=== PATIENT | female | born 1970 | race Caucasian/White ===

== ENCOUNTER 2016-07-20 15:23 | Emergency (ER) | payer OTHER ==
[~2016-07-20] VITALS: Ht 157.5 cm; Wt 77.1 kg
[~2016-07-20 15:23] MED LIST: DIFLUCAN150 MG PO; DOXYCYLINE50 MG PO; FLAGYL500 MG PO; NAPROSYN500 MG PO; OXYBUTYNIN5 M1; ROBAXIN500 M1 PO; ULTRAM50 MG PO; [UNRECOGNIZED DRUG - OTHER] VG
[2016-07-20 15:34] VITALS: BP 136/78
--- NOTE | 2016-07-20 15:38 | NUR ---
Patient ambulated to bed 7. RN evaluating patient at bedside.
--- NOTE | 2016-07-20 15:40 | NUR ---
PATIENT PRESENTS TO ED WITH NECK STIFFNESS AND CHEST PRESSURE X1 DAY. NO TRAUMA; DENIES N/V/D; SKIN IS PINK/WARM/DRY; AAOX4 WITH EVEN AND STEADY GAIT; LUNGS CLEAR BL; HR EVEN AND REGULAR; PT DENIES ANY FEVER, CP, SOB, OR COUGH AT THIS TIME; PATIENT STATES PAIN OF 5/10 AT THIS TIME; VSS; PATIENT POSITIONED FOR COMFORT; HOB ELEVATED; BEDRAILS UP X2; BED DOWN. ER MD MADE AWARE OF PT STATUS.
[2016-07-20] MEDS ORDERED: KETOROLAC 60 MG/2 ML VIAL IM ONE (16:00)
--- NOTE | 2016-07-20 16:35 | NUR ---
AMBERO PT TAKEN TO XRAY VIA WHEEL CHAIR BY TAX COMMISSIONER
--- NOTE | 2016-07-20 16:35 | NUR ---
Ashely kaye in [facility] - 07/20/16 at 1638 by DIANA LINE MANAGER AT BEDSIDE
--- NOTE | 2016-07-20 16:51 | NUR ---
PT BACK FROM XRAY VIA WHEEL CHAIR PLACED BACK ON MONITOR
[2016-07-20 17:25] VITALS: BP 120/70
== END 2016-07-20 17:25 | disposition home or self-care (01) ==
LOC: MED 15:23
DX: M43.6 Torticollis (principal); R03.0 Elevated blood-pressure reading, without diagnosis of hypertension
CPT/HCPCS: 36415; 71010; 72040; 80053; 85025; 93005; 96372; 99285; J1885

== ENCOUNTER 2016-12-08 00:01 | Emergency (ER) | payer OTHER ==
[~2016-12-08] VITALS: Ht 157.5 cm; Wt 81.6 kg
[2016-12-08 00:05] VITALS: BP 135/83
--- NOTE | 2016-12-08 00:12 | NUR ---
AMBULATED TO ER BED 7
--- NOTE | 2016-12-08 00:42 | NUR ---
Patient being evaluated by physician at bedside.
[2016-12-08] MEDS ORDERED: SUMAtriptan 6 MG/0.5 ML VIAL SUBQ ONE (00:45)
[2016-12-08] MEDS ORDERED: KETOROLAC 60 MG/2 ML VIAL IM ONE (00:45)
[2016-12-08 02:00] VITALS: BP 120/62
--- NOTE | 2016-12-08 02:00 | NUR ---
Patient discharged with v/s stable. Written and verbal after care instructions given and explained. Patient alert, oriented and verbalized understanding of instructions. Ambulatory with steady gait. All questions addressed prior to discharge. ID band removed. Patient advised to follow up with PMD. Rx of IMTREX given. Patient educated on indication of medication including possible reaction and side effects. Opportunity to ask questions provided and answered.
--- NOTE | 2016-12-08 02:00 | NUR ---
Note jeffone in EDM - 12/08/16 at 0202 by FAYE Patient discharged with v/s stable. Written and verbal after care instructions given and explained. Patient alert, oriented and verbalized understanding of instructions. Ambulatory with by parent. All questions addressed prior to discharge. ID band removed. Patient advised to follow up with PMD. Rx of OMEPRAZOLE given. Patient educated on indication of medication including possible reaction and side effects. Opportunity to ask questions provided and answered.
== END 2016-12-08 02:00 | disposition home or self-care (01) ==
LOC: MED 00:01
DX: G43.909 Migraine, unspecified, not intractable, without status migrainosus (principal); R03.0 Elevated blood-pressure reading, without diagnosis of hypertension
CPT/HCPCS: 96372; 99284; J1885; J3030

== ENCOUNTER 2017-07-20 02:49 | Emergency (ER) | payer OTHER ==
[~2017-07-20] VITALS: Ht 157.5 cm; Wt 80.7 kg
[2017-07-20 02:52] VITALS: BP 147/95
--- NOTE | 2017-07-20 03:00 | NUR ---
PATIENT AMBULATED TO ER CHAIR B.
--- NOTE | 2017-07-20 03:02 | NUR ---
PATIENT IS A 46 Y/O FEMALE WHO PRESENTS TO THE ED C/O ALLERGIC REACTION. PT STATES, "I WAS DRINKING BEERS AND HAD SOME PEANUTS AND I FEEL ITCHY." PT DENIES PAIN AT THIS TIME, REPORTS BODY ITCHES. PT DENIES CP, SOB, N/V/D. PT AAOX4, RR EVEN/UNLABORED. PT REPOSITIONED FOR COMFORT, PT SITTING IN CHAIR. ER MD DR. GORMAN NOTIFIED. WILL CONTINUE TO MONITOR.
[2017-07-20] MEDS ORDERED: predniSONE 20 MG TAB PO ONE (03:20)
[2017-07-20 03:50] VITALS: BP 139/89
--- NOTE | 2017-07-20 03:50 | NUR ---
Patient discharged with v/s stable. Written and verbal after care instructions given and explained. Patient alert, oriented and verbalized understanding of instructions. Ambulatory with steady gait. All questions addressed prior to discharge. ID band removed. Patient advised to follow up with PMD. Rx of MEDROL DOSEPAK 4MG given. Patient educated on indication of medication including possible reaction and side effects. Opportunity to ask questions provided and answered.
== END 2017-07-20 03:50 | disposition home or self-care (01) ==
LOC: MED 02:49
DX: L50.0 Allergic urticaria (principal); Z90.49 Acquired absence of other specified parts of digestive tract
CPT/HCPCS: 99283; J7512

== ENCOUNTER 2017-07-20 21:21 | Emergency (ER) | payer OTHER ==
[~2017-07-20] VITALS: Ht 157.5 cm; Wt 80.7 kg
[2017-07-20 21:27] VITALS: BP 167/97
--- NOTE | 2017-07-21 00:09 | NUR ---
TO ER BED 1
--- NOTE | 2017-07-21 00:09 | NUR ---
Pt presents to ED with dyspnea and fullbody rash. Pt states she was seen at [facility] ED on 07/20/17 and was perscribed prednisolone po. At time of assessment Pt denied SOB or Dyspnea. Multiple hive-patches observed on bilateral upper/lower libs and anterior/posterior trunk. VSS. Pt positioned in bed for comfort with HOB elevated. ER MD aware. Continue to monitor.
[2017-07-21] MEDS ORDERED: diphenhydrAMINE 50 MG CAP PO ONE (01:15)
[2017-07-21] MEDS ORDERED: DEXAMETHASONE 10 MG/ML VIAL IM ONE (01:15)
[2017-07-21] MEDS ORDERED: FAMOTIDINE 20 MG TAB PO ONE (01:15)
[2017-07-21] MEDS ORDERED: hydrOXYzine 50 MG/ML VIAL IM ONE (02:10)
--- NOTE | 2017-07-21 02:10 | NUR ---
PT CONTINUES TO C/O ITCHYNESS; PT DENIES ANY DIFFICULTY BREATHING; PT BREATHING IS UNLABORED, CLEAR AND EVEN. PT STATES THROAT FEELS ITCHY, BUT NO DIFFICULTY WHEN GIVEN CUP OF WATER. PT STILL ABLE TO RESPOND IS COMPLETE SENTENCES. ER MD DR WALSH MADE AWARE, WILL ORDER MEDICATION
--- NOTE | 2017-07-21 02:11 | NUR ---
VISTARIL 50MG INJ NOT AVAILABLE IN ER, HOUSE SUP INFORMED
--- NOTE | 2017-07-21 02:31 | NUR ---
VISTARIL NOT AVAILABLE, PER RAMON MCNAIR DR DEHKORDI MADE AWARE.
[2017-07-21 02:56] VITALS: BP 137/75
--- NOTE | 2017-07-21 02:56 | NUR ---
dPatient discharged with v/s stable. Written and verbal after care instructions given and explained. Patient alert, oriented and verbalized understanding of instructions. Ambulatory with steady gait. All questions addressed prior to discharge. ID band removed. Patient advised to follow up with PMD. Rx of bedadryl allergy given. Patient educated on indication of medication including possible reaction and side effects. Opportunity to ask questions provided and answered.
== END 2017-07-21 02:56 | disposition home or self-care (01) ==
LOC: MED 21:21
DX: L50.9 Urticaria, unspecified (principal)
CPT/HCPCS: 96372; 99283; J1100; J3410; Q0163

== ENCOUNTER 2018-03-19 07:18 | Emergency (ER) | payer MEDICAID, OTHER ==
[~2018-03-19] VITALS: Ht 157.5 cm; Wt 85.5 kg
[2018-03-19 07:24] VITALS: BP 125/71
[2018-03-19] MEDS ORDERED: NACL 0.9% 1,000 ML IV ONE (07:50)
[2018-03-19 08:33] LABS: BASOPHILS % (AUTO) 0.5 % (0.0-2.0); EOSINOPHILS # (AUTO) 0.1 K/uL (0-0.4); EOSINOPHILS % (AUTO) 1.6 % (0.0-4.0); HEMATOCRIT 42.4 % (36-48); HEMOGLOBIN 14.3 g/dL (12.0-16.0); LYMPHOCYTES % (AUTO) 35.1 % (20.5-51.1); MEAN CORPUSCULAR HEMOGLOBIN 31 pg (27-31); MEAN CORPUSCULAR HGB CONC 34 g/dL (33-37); MEAN CORPUSCULAR VOLUME 91.7 fL (80-94); MONOCYTES # (AUTO) 0.2 K/uL (0.8-1.0); MONOCYTES % (AUTO) 4.3 % (1.7-9.3); NEUTROPHILS # (AUTO) 3.3 K/uL (1.8-7.7); NEUTROPHILS % (AUTO) 58.5 % (42.2-75.2); PLATELET COUNT (AUTO) 166 K/uL (140-450); RED BLOOD CELL COUNT(AUTO) 4.62 MIL/uL (4.20-5.40); RED CELL DISTRIBUTION WIDTH 13.1 % (11.6-13.7); WHITE BLOOD COUNT (AUTO) 5.6 K/uL (4.8-10.8)
[2018-03-19 08:41] LABS: ANION GAP 9.1 (8-16); CARBON DIOXIDE 28.1 mmol/L (21-32); CREATININE 0.7 mg/dL (0.6-1.3); POTASSIUM 4.2 mmol/L (3.5-5.1)
[2018-03-19 08:47] LABS: TOTAL BILIRUBIN 0.4 mg/dL (0.0-1.0)
[2018-03-19 08:56] LABS: APPEARANCE,URINE CLEAR (CLEAR); BILIRUBIN,URINE NEGATIVE (NEGATIVE); BLOOD, URINE 1+ (NEGATIVE); COLOR,URINE YELLOW (YELLOW); LEUKOCYTE ESTERASE ,URINE NEGATIVE (NEGATIVE); NITRITE, URINE NEGATIVE (NEGATIVE); UGLUCOSE NEGATIVE (NEGATIVE)
[2018-03-19 08:57] LABS: RBC,URINE 3-10 (FEW) /HPF (0-5); WBC,URINE 0-5 (RARE) /HPF (0-5)
[2018-03-19 10:23] VITALS: BP 125/71
== END 2018-03-19 10:24 | disposition home or self-care (01) ==
LOC: MED 07:18
DX: K52.9 Noninfective gastroenteritis and colitis, unspecified (principal)
CPT/HCPCS: 36415; 80053; 81001; 81025; 85025; 96360; 96361; 99285; J7030

== ENCOUNTER 2019-03-04 01:40 | Emergency (ER) | payer SELFPAY ==
[~2019-03-04] VITALS: Ht 154.9 cm; Wt 83.9 kg
[2019-03-04 01:42] VITALS: BP 136/79
[2019-03-04] MEDS ORDERED: ONDANSETRON 4 MG/2 ML VIAL IVP ONE (02:15)
[2019-03-04] MEDS ORDERED: MORPHINE SULFATE 4 MG/ML SYR IVP ONE (02:15)
[2019-03-04 02:38] LABS: APPEARANCE,URINE CLEAR (CLEAR); BILIRUBIN,URINE NEGATIVE (NEGATIVE); BLOOD, URINE TRACE-L (NEGATIVE); COLOR,URINE YELLOW (YELLOW); LEUKOCYTE ESTERASE ,URINE NEGATIVE (NEGATIVE); NITRITE, URINE NEGATIVE (NEGATIVE); PH,URINE 5.5 (5.0-9.0); UGLUCOSE NEGATIVE (NEGATIVE)
[2019-03-04 02:40] LABS: BASOPHILS # (AUTO) 0.1 K/uL (0.00-0.22); BASOPHILS % (AUTO) 1.2 % (0.0-2.0); EOSINOPHILS # (AUTO) 0.2 K/uL (0-0.4); EOSINOPHILS % (AUTO) 2.8 % (0.0-4.0); HEMATOCRIT 39.4 % (36-48); HEMOGLOBIN 13.2 g/dL (12.0-16.0); LYMPHOCYTES # (AUTO) 2.2 K/uL (2.5-16.5); LYMPHOCYTES % (AUTO) 28.9 % (20.5-51.1); MEAN CORPUSCULAR HEMOGLOBIN 32 pg (27-31); MEAN CORPUSCULAR HGB CONC 34 g/dL (33-37); MEAN CORPUSCULAR VOLUME 94.1 fL (80-94); MONOCYTES # (AUTO) 0.3 K/uL (0.8-1.0); MONOCYTES % (AUTO) 4.3 % (1.7-9.3); NEUTROPHILS # (AUTO) 4.8 K/uL (1.8-7.7); NEUTROPHILS % (AUTO) 62.8 % (42.2-75.2); PLATELET COUNT (AUTO) 152 K/uL (140-450); RED BLOOD CELL COUNT(AUTO) 4.19 MIL/uL (4.20-5.40); RED CELL DISTRIBUTION WIDTH 13.2 % (11.6-13.7); WHITE BLOOD COUNT (AUTO) 7.6 K/uL (4.8-10.8)
[2019-03-04 02:54] LABS: RBC,URINE 0-5 /HPF (0-5); WBC,URINE 0-5 /HPF (0-5)
[2019-03-04 03:00] LABS: ANION GAP 9.9 (8-16); CARBON DIOXIDE 28.2 mmol/L (21-32); CREATININE 0.8 mg/dL (0.6-1.3); POTASSIUM 4.1 mmol/L (3.5-5.1)
[2019-03-04 03:05] LABS: ALBUMIN 2.9 g/dL (3.4-5.0); TOTAL BILIRUBIN 0.3 mg/dL (0.0-1.0)
[2019-03-04 04:05] VITALS: BP 109/55
== END 2019-03-04 04:05 | disposition home or self-care (01) ==
LOC: MED 01:40
DX: K80.50 Calculus of bile duct without cholangitis or cholecystitis without obstruction (principal)
CPT/HCPCS: 36415; 76705; 80053; 81001; 81025; 83690; 85025; 96374; 96375; 99284; J2270; J2405; Q0092

== ENCOUNTER 2019-03-08 01:50 | Inpatient (IN) | payer SELFPAY ==
[~2019-03-08] VITALS: Ht 157.5 cm; Wt 81.6 kg
[2019-03-08] MEDS ORDERED: NACL 0.9% 500 ML IV ONE (01:58)
[2019-03-08] MEDS ORDERED: ONDANSETRON 4 MG/2 ML VIAL IVP ONE (02:00)
[2019-03-08] MEDS ORDERED: KETOROLAC 30 MG/ML VIAL IVP ONE (02:00)
[2019-03-08 02:02] VITALS: BP 126/66
--- NOTE | 2019-03-08 02:08 | NUR ---
PT AMBULATED TO BED 9.
[2019-03-08 02:24] LABS: BASOPHILS % (AUTO) 0.4 % (0.0-2.0); EOSINOPHILS # (AUTO) 0.1 K/uL (0-0.4); EOSINOPHILS % (AUTO) 1.3 % (0.0-4.0); HEMATOCRIT 42.2 % (36-48); LYMPHOCYTES % (AUTO) 33.5 % (20.5-51.1); MEAN CORPUSCULAR HEMOGLOBIN 31 pg (27-31); MEAN CORPUSCULAR HGB CONC 33 g/dL (33-37); MEAN CORPUSCULAR VOLUME 94.3 fL (80-94); MONOCYTES # (AUTO) 0.4 K/uL (0.8-1.0); MONOCYTES % (AUTO) 4.9 % (1.7-9.3); NEUTROPHILS # (AUTO) 5.3 K/uL (1.8-7.7); NEUTROPHILS % (AUTO) 59.9 % (42.2-75.2); PLATELET COUNT (AUTO) 150 K/uL (140-450); RED BLOOD CELL COUNT(AUTO) 4.47 MIL/uL (4.20-5.40); RED CELL DISTRIBUTION WIDTH 13.3 % (11.6-13.7); WHITE BLOOD COUNT (AUTO) 8.9 K/uL (4.8-10.8)
[2019-03-08 02:39] LABS: ALBUMIN 3.1 g/dL (3.4-5.0); ANION GAP 12.5 (8-16); CARBON DIOXIDE 26.3 mmol/L (21-32); CREATININE 0.7 mg/dL (0.6-1.3); POTASSIUM 3.8 mmol/L (3.5-5.1); TOTAL BILIRUBIN 0.2 mg/dL (0.0-1.0)
--- NOTE | 2019-03-08 03:19 | NUR ---
48 Y/O FEMALE PRESENTS TO ED, C/O OF ABDOMINAL PAIN 02/25. PT STATES SHE WAS RECENTLY DIAGNOSED WITH GALLSTONES, RX NORCO FOR PAIN 2 DAYS AGO. STATES MEDICATION WAS INEFFECTIVE. ABD IS SOFT AND TENDER TO TOUCH. BS ACTIVE X4 QUADRANTS. C/O OF N/V. LAST EPISODE WAS 30 MINS SADDLE AND HARNESS MAKER. PT VSS. ERMD AWARE. WILL CONTINUE TO MONITOR.
--- NOTE | 2019-03-08 03:33 | NUR ---
Ultrasound at bedside.
[2019-03-08] MEDS ORDERED: DEXT 5% / NACL 0.45% 1,000 ML IV ONE (03:40)
--- NOTE | 2019-03-08 03:48 | NUR ---
Dr. An examining patient.
--- NOTE | 2019-03-08 04:00 | NUR ---
Dr. Davidson examining patient.
--- NOTE | 2019-03-08 04:07 | NUR ---
PT AMBULATED TO RESTROOM.
[2019-03-08] MEDS ORDERED: HYDROcodone/APAP 5/325 MG 1 TAB TAB PO PRN (04:10)
[2019-03-08] MEDS ORDERED: LORazepam 2 MG/ML VIAL IM/IVP PRN (04:10)
[2019-03-08] MEDS ORDERED: ONDANSETRON 4 MG/2 ML VIAL IM/IVP PRN (04:10)
[2019-03-08] MEDS ORDERED: MORPHINE SULFATE 2 MG/ML SYR IVP PRN (04:10)
[2019-03-08] MEDS ORDERED: ACETAMINOPHEN 325 MG TAB PO PRN (04:10)
[2019-03-08] MEDS ORDERED: ZOLPIDEM 5 MG TAB PO PRN (04:10)
[2019-03-08] MEDS ORDERED: DOCUSATE SODIUM 100 MG GELCAP PO PRN (04:10)
[2019-03-08 04:26] LABS: APPEARANCE,URINE SL CLOUDY (CLEAR); BILIRUBIN,URINE NEGATIVE (NEGATIVE); BLOOD, URINE 1+ (NEGATIVE); COLOR,URINE YELLOW (YELLOW); LEUKOCYTE ESTERASE ,URINE NEGATIVE (NEGATIVE); NITRITE, URINE NEGATIVE (NEGATIVE); UGLUCOSE NEGATIVE (NEGATIVE)
[2019-03-08 04:40] LABS: PROTHROMBIN TIME 9.1 secs (10.8-13.4)
--- NOTE | 2019-03-08 04:40 | NUR ---
PT ADMITTED TO [facility] RM 119A. TRANSFERRED PT VIA [place], STABLE CONDITION. REPORT GIVEN TO GINA ZIEGLER. PT CARE TRANSFERRED TO RECEIVING RN.
[2019-03-08 04:41] LABS: BARBITURATE, URINE NEG. ng/ml (NEG <=200); BENZODIAZEPINE, URINE NEG. ng/mL (NEG <=200); CANNABINOID, URINE NEG. ng/mL (NEG <=50); COCAINE, URINE NEG. ng/mL (NEG <=300); OPIATE, URINE NEG. ng/mL (NEG <=2000); PHENCYCLIDINE SCREEN,URINE NEG. ng/mL (NEG <=25)
[2019-03-08 04:43] LABS: CHOL/HDL RATIO 5.6 (1-4.5); MAGNESIUM 1.9 mg/dL (1.8-2.4); PHOSPHORUS 3.3 mg/dL (2.5-4.9); THYROID STIMULATING HORMONE 2.3 uIU/mL (0.34-3.74)
--- NOTE | 2019-03-08 04:45 | NUR ---
ADMITTED THIS 48 YEAR OLD FEMALE FROM ER PER MANOJ WITH CC OF ABDOMINAL PAIN, AMBULATED TO BED WITH STEADY GAIT, VITAL SIGNS STABLE, AAOX4, 4/10 TOLERABLE PAIN LEVEL AT THIS TIME, ORIENTED TO ROOM AND CALL LIGHT, PLAN OF CARE DISCUSSED, INSTRUCTED NPO EXCEPT MEDS FOR NOW, SAFETY MEASURES IN PLACE, CALL LIGHT WITHIN REACH, AT BEDSIDE.
[2019-03-08] MEDS: DEXT 5% /NACL 0.9% 1,000 ML IV SCH ×2 (05:08→16:39)
--- NOTE | 2019-03-08 05:10 | NUR ---
PT AMBULATED TO BR AND VOIDED FREELY, IVF OF D5NS AT 80ML/H STARTED.
[2019-03-08 05:12] LABS: RBC,URINE 0-5 /HPF (0-5); WBC,URINE 0-5 /HPF (0-5)
[2019-03-08] MEDS ORDERED: cefTRIAXone 1,000 MG VIAL ONE (05:14)
--- NOTE | 2019-03-08 06:30 | NUR ---
PT SLEEPING, EASILY AROUSABLE, TOLERABLE PAIN AT THIS TIME, ENCOURAGE TO CALL WHEN PAIN GET WORST, VERBALIZED UNDERSTANDING, NO REACTION NOTED FROM ROCEPHIN IVPB, MONITORED CLOSELY.
--- NOTE | 2019-03-08 07:17 | NUR ---
PT AWAKE, NO SIGNS OF DISTRESS, REPORT GIVEN TO TONEY LOVELACE FOR CONTINUITY OF CARE.
--- NOTE | 2019-03-08 07:18 | NUR ---
RECEIVED REPORT FROM GRADING CLERK NURSE. PATIENT LYING DOWN IN BED COMFORTABLY. NO DISTRESS NOTED. ALYCE ANY PAIN AT THIS TIME. AAOX4, CALM, COOPERATIVE, SKIN COLOR APPROPRIATE TO ETHNICITY, WARM TO TOUCH. SKIN INTACT. ABDOMEN SOFT, NON-DISTENDED. IV SITE INTACT, PATENT, AND INFUSING IVF PER MD ORDERS. REVIEWED PLAN OF CARE WITH PATIENT. PATIENT VERBALIZED UNDERSTANDING. SAFETY MEASURES IN PLACE, CALL LIGHT WITHIN REACH. WILL CONTINUE TO MONITOR.
[2019-03-08 08:00] VITALS: BP 107/61
[2019-03-08] MEDS ORDERED: LACTOBACILLUS RHAMNOSUS GG 1 EACH CAP PO SCH (09:00)
--- NOTE | 2019-03-08 09:29 | NUR ---
PATIENT LYING DOWN IN BED, SON AT BEDSIDE. NO DISTRESS NOTED. PAIN WITHIN TOLERABLE AT THIS TIME. PATIENT FEELING NAUSEATED, ZOFRAN GIVEN AT THIS TIME. WILL CONTINUE TO MONITOR.
--- NOTE | 2019-03-08 11:15 | NUR ---
PATIENT LYING DOWN IN BED SLEEPING, AROUSABLE BY VOICE. SON AT BEDSIDE. CONDITION UNCHANGED. WILL CONTINUE TO MONITOR.
--- NOTE | 2019-03-08 12:46 | NUR ---
PATIENT COMPLAINS OF ABD PAIN. TORADOL X 1 DOSE GIVEN AT THIS TIME. WILL CONTINUE TO MONITOR.
[2019-03-08] MEDS ORDERED: KETOROLAC 15 MG/ML VIAL IM/IVP SCH (13:00)
--- NOTE | 2019-03-08 13:20 | NUR ---
PATIENT HAS BEEN SCREENED AND CATEGORIZED LOW NUTRITION RISK. PATIENT WILL BE SEEN WITHIN 7 DAYS OF ADMISSION. 03/14/[address]
--- NOTE | 2019-03-08 13:38 | NUR ---
NM SCAN BIOMEDICAL FIELD SERVICE ENGINEER AT BEDSIDE TO TAKE PATIENT TO [place] HIDA SCAN. WILL CONTINUE TO MONITOR.
--- NOTE | 2019-03-08 15:30 | NUR ---
PATIENT BACK FROM [place] HIDA SCAN. NO DISTRESS NOTED. DENIES ANY PAIN. SCHEDULED MEDICATIONS DUE GIVEN. WILL CONTINUE TO MONITOR.
[2019-03-08 16:00] VITALS: BP 105/66
--- NOTE | 2019-03-08 18:00 | NUR ---
DR PENA AT BEDSIDE REVIEWING PLAN OF CARE WITH PATIENT. PER DR. PENA, [place] HIDA SCAN IS NEGATIVE, PATIENT TO FOLLOW-UP WITH HIM FOR OUTPATIENT CHOLECYSTECTOMY. WILL CONTINUE TO MONITOR.
--- NOTE | 2019-03-08 18:40 | NUR ---
DISCHARGE INSTRUCTIONS PROVIDED TO PATIENT IN PREFERRED LANGUAGE OF [place]ET[place]ESE. INSTRUCTIONS ON DIET REGIMEN, FOLLOW-UP WITH PCP AND DR. PENA, AND DISEASE PROCESS/MANAGEMENT OF ACUTE CHOLECYSTITIS PROVIDED. ANSWERED ALL OF PATIENT/FAMILY QUESTIONS AT BEDSIDE. PATIENT WANTS TO EAT DINNER BEFORE LEAVING. AWAITING FOR PATIENT TO FINISH DINNER THEN DISCHARGE TO HOME. WILL CONTINUE TO MONITOR.
--- NOTE | 2019-03-08 19:30 | NUR ---
GAVE REPORT TO TRUST VAULT CUSTODIAN NURSE FOR CONTINUITY OF CARE. PATIENT IN STABLE CONDITION.
--- NOTE | 2019-03-08 19:35 | NUR ---
PT DISCHARGED TO HOME. PATIENT LEFT WITH ALL HER DISCHARGE PAPERS AND BELONGINGS. IV LINE DISCONTINUED. PATIENT LEFT IN STABLE CONDITION
[2019-03-09 12:07] LABS: T4 (THYROXINE) 10.1 ug/dL (4.5-12.0)
== END 2019-03-08 19:35 | disposition home or self-care (01) | DRG 445 ==
LOC: MED 01:50 → MTU 04:25
PROVIDERS: ADMIT General Practice; ATTEND General Practice
DX: K80.60 Calculus of gallbladder and bile duct with cholecystitis, unspecified, without obstruction (principal); E44.1 Mild protein-calorie malnutrition; E66.9 Obesity, unspecified; Z68.32 Body mass index [BMI] 32.0-32.9, adult
CPT/HCPCS: 36415; 71045; 76705; 78445; 80053; 80305; 81001; 81025; 82150; 83036; 83690; 83735; 83880; 84100; 84134; 84436; 84443; 84484; 85025; 85610; 85730; 87081; 96361; 96374; 96375; 99285; J0696; J1885; J2270; J2405; J7042; J7060; Q0092

== ENCOUNTER 2019-03-28 03:45 | Emergency (ER) | payer SELFPAY ==
[~2019-03-28] VITALS: Ht 157.5 cm; Wt 77.1 kg
[2019-03-28 04:10] VITALS: BP 120/74
--- NOTE | 2019-03-28 04:10 | NUR ---
TO BED # 04 AMBULATORY
--- NOTE | 2019-03-28 04:25 | NUR ---
48 Y/O F PRESENTS TO ER C/O RUQ SINCE 2AM. PER PT SHE WAS SLEEPING WHEN THE ONSET OF PAIN OCCURED. LAST MEAL WAS AROUND 1930. PT TOOK IBUPROFEN AT 2AM, WITH PAIN RELIEF. PT STILL HAS NAUSEA. PT DENIES VOMITING/DIARRHEA. PAIN LEVEL 6/10, BURNING CONSTANT PAIN. ALLERGIES: NKA. MED HX: NONE. HOB ELEVATED, BED IN LOWEST POSITION, BED RAIL UP X1. WAITING FOR ERMD TO EVALUATE PT.
[2019-03-28] MEDS ORDERED: KETOROLAC 30 MG/ML VIAL IM ONE (05:35)
[2019-03-28] MEDS ORDERED: DICYCLOMINE HCL LIQUID 20 MG, ALUMINUM HYD/MAG/SIMETHICONE 30 ML, LIDOCAINE VISCOUS 2% ... PO ONE ×3 (05:35)
[2019-03-28 05:38] LABS: APPEARANCE,URINE CLEAR (CLEAR); BILIRUBIN,URINE NEGATIVE (NEGATIVE); BLOOD, URINE TRACE-I (NEGATIVE); COLOR,URINE YELLOW (YELLOW); LEUKOCYTE ESTERASE ,URINE NEGATIVE (NEGATIVE); NITRITE, URINE NEGATIVE (NEGATIVE); PH,URINE 6.5 (5.0-9.0); UGLUCOSE NEGATIVE (NEGATIVE)
[2019-03-28 05:51] LABS: WBC,URINE 0-5 /HPF (0-5)
--- NOTE | 2019-03-28 06:48 | NUR ---
PT RESTING IN BED WITH EYES CLOSED, VSS. WILL CONTINUE TO MONITOR.
--- NOTE | 2019-03-28 07:02 | NUR ---
LAB AT BEDSIDE DRAWING LABS
--- NOTE | 2019-03-28 07:06 | NUR ---
TRANSFER OF CARE AND REPORT GIVEN TO TONEY MYERS
--- NOTE | 2019-03-28 07:08 | NUR ---
RECIEVED REPORT FROM TONEY HASKINS. WILL CONT PLAN OF CARE AT THIS TIME.
[2019-03-28 07:25] LABS: ANION GAP 11.6 (8-16); CARBON DIOXIDE 28.7 mmol/L (21-32); CREATININE 0.7 mg/dL (0.6-1.3); POTASSIUM 4.3 mmol/L (3.5-5.1)
[2019-03-28 07:30] LABS: ALBUMIN 2.9 g/dL (3.4-5.0); TOTAL BILIRUBIN 0.2 mg/dL (0.0-1.0)
[2019-03-28 08:03] LABS: BASOPHILS % (AUTO) 0.3 % (0.0-2.0); EOSINOPHILS # (AUTO) 0.1 K/uL (0-0.4); EOSINOPHILS % (AUTO) 1.5 % (0.0-4.0); HEMATOCRIT 40.8 % (36-48); HEMOGLOBIN 13.7 g/dL (12.0-16.0); LYMPHOCYTES # (AUTO) 2.1 K/uL (2.5-16.5); LYMPHOCYTES % (AUTO) 34.2 % (20.5-51.1); MEAN CORPUSCULAR HEMOGLOBIN 32 pg (27-31); MEAN CORPUSCULAR HGB CONC 34 g/dL (33-37); MEAN CORPUSCULAR VOLUME 93.8 fL (80-94); MONOCYTES # (AUTO) 0.3 K/uL (0.8-1.0); MONOCYTES % (AUTO) 5.3 % (1.7-9.3); NEUTROPHILS # (AUTO) 3.6 K/uL (1.8-7.7); NEUTROPHILS % (AUTO) 58.7 % (42.2-75.2); PLATELET COUNT (AUTO) 140 K/uL (140-450); RED BLOOD CELL COUNT(AUTO) 4.35 MIL/uL (4.20-5.40); RED CELL DISTRIBUTION WIDTH 13.2 % (11.6-13.7); WHITE BLOOD COUNT (AUTO) 6.1 K/uL (4.8-10.8)
[2019-03-28 08:23] VITALS: BP 126/78
--- NOTE | 2019-03-28 08:23 | NUR ---
Patient discharged with v/s stable. Written and verbal after care instructions given and explained. Patient alert, oriented and verbalized understanding of instructions. Ambulatory with steady gait. All questions addressed prior to discharge. ID band removed. Patient advised to follow up with PMD. Rx of BENTYL AND NAPROSYN given. Patient educated on indication of medication including possible reaction and side effects. Opportunity to ask questions provided and answered.
== END 2019-03-28 08:23 | disposition home or self-care (01) ==
LOC: MED 03:45
DX: R10.13 Epigastric pain (principal); R11.0 Nausea
CPT/HCPCS: 36415; 80053; 81001; 81025; 83690; 85025; 87086; 96372; 99283; J1885

== ENCOUNTER 2019-05-04 16:39 | Emergency (ER) | payer OTHER ==
[~2019-05-04] VITALS: Ht 154.9 cm; Wt 85.3 kg
[2019-05-04 16:54] VITALS: BP 126/62
--- NOTE | 2019-05-04 16:58 | NUR ---
URINE CUP HANDED TO PT FOR SAMPLE
--- NOTE | 2019-05-04 17:14 | NUR ---
PT PLACED IN BED 6.
--- NOTE | 2019-05-04 17:40 | NUR ---
C/O SUDDEN ONSET RUQ PAIN 8/10 AND SHARP STARTING THIS MORNING ACCOMPANIED BY N/V/D. PT REPORTS HX OF GALLSTONES AND STATES THIS FEELS LIKE THE SAME THING. PT IS GUARDED, APPEARS TO BE IN MILD DISTRESS. ABDOMEN SOFT/FLAT/NON TENDER TO PALPATION. LBM TODAY : DIARRHEA. BOWEL SOUNDS PRESENT X4. BED IN LOW POSITION, SIDE RAIL UP X1. PT PLACED IN GOWN.
--- NOTE | 2019-05-04 18:20 | NUR ---
ERMD AT BEDSIDE
[2019-05-04] MEDS ORDERED: NACL 0.9% 1,000 ML IV SCH (18:29)
[2019-05-04] MEDS ORDERED: ONDANSETRON 4 MG/2 ML VIAL IVP ONE ×2 (18:30→20:15)
[2019-05-04] MEDS ORDERED: KETOROLAC 30 MG/ML VIAL IVP ONE (18:30)
[2019-05-04 18:54] LABS: BASOPHILS % (AUTO) 0.2 % (0.0-2.0); EOSINOPHILS # (AUTO) 0.1 K/uL (0-0.4); EOSINOPHILS % (AUTO) 1.2 % (0.0-4.0); HEMATOCRIT 39.1 % (36-48); HEMOGLOBIN 13.2 g/dL (12.0-16.0); LYMPHOCYTES # (AUTO) 0.9 K/uL (2.5-16.5); LYMPHOCYTES % (AUTO) 12.2 % (20.5-51.1); MEAN CORPUSCULAR HEMOGLOBIN 31 pg (27-31); MEAN CORPUSCULAR HGB CONC 34 g/dL (33-37); MEAN CORPUSCULAR VOLUME 93.4 fL (80-94); MONOCYTES # (AUTO) 0.3 K/uL (0.8-1.0); MONOCYTES % (AUTO) 3.5 % (1.7-9.3); NEUTROPHILS # (AUTO) 6.1 K/uL (1.8-7.7); NEUTROPHILS % (AUTO) 82.9 % (42.2-75.2); PLATELET COUNT (AUTO) 141 K/uL (140-450); RED BLOOD CELL COUNT(AUTO) 4.19 MIL/uL (4.20-5.40); RED CELL DISTRIBUTION WIDTH 13.4 % (11.6-13.7); WHITE BLOOD COUNT (AUTO) 7.4 K/uL (4.8-10.8)
[2019-05-04 19:24] LABS: CARBON DIOXIDE 26.7 mmol/L (21-32); CREATININE 0.7 mg/dL (0.6-1.3); POTASSIUM 3.7 mmol/L (3.5-5.1)
[2019-05-04 19:29] LABS: ALBUMIN 2.9 g/dL (3.4-5.0); TOTAL BILIRUBIN 0.5 mg/dL (0.0-1.0)
[2019-05-04] MEDS ORDERED: MORPHINE SULFATE 4 MG/ML SYR IVP ONE ×2 (19:40→20:15)
--- NOTE | 2019-05-04 20:00 | NUR ---
PT C/O INCREASING PAIN. ERMD MADE AWARE
--- NOTE | 2019-05-04 20:20 | NUR ---
PT STATES SHE IS HAVING NAUSEA
--- NOTE | 2019-05-04 20:53 | NUR ---
PT STATES DECREASE IN PAIN AFTER MEDICATION GIVEN. 05/28
[2019-05-04 20:57] VITALS: BP 121/70
--- NOTE | 2019-05-04 20:58 | NUR ---
Patient discharged with v/s stable. Written and verbal after care instructions given and explained. Patient alert, oriented and verbalized understanding of instructions. Ambulatory with steady gait. All questions addressed prior to discharge. ID band removed. Patient advised to follow up with PMD. Rx of NAPROSYN AND MYLANTA given. Patient educated on indication of medication including possible reaction and side effects. Opportunity to ask questions provided and answered.
--- NOTE | 2019-05-05 13:16 | NUR ---
Late entry. Confirmed with RN that 0.9 NS IV completed at 2000
== END 2019-05-04 20:57 | disposition home or self-care (01) ==
LOC: MED 16:39
DX: K80.20 Calculus of gallbladder without cholecystitis without obstruction (principal); Z90.49 Acquired absence of other specified parts of digestive tract
CPT/HCPCS: 36415; 80053; 81002; 81025; 83690; 85025; 96361; 96374; 96375; 99283; J1885; J2270; J2405

== ENCOUNTER 2019-08-10 02:42 | Emergency (ER) | payer MEDICAID, OTHER ==
[~2019-08-10] VITALS: Ht 157.5 cm; Wt 81.2 kg
[2019-08-10 03:02] VITALS: BP 124/79
[2019-08-10] MEDS ORDERED: ONDANSETRON 4 MG/2 ML VIAL IVP ONE (04:35)
[2019-08-10] MEDS ORDERED: NACL 0.9% 1,000 ML IV ONE (04:35)
[2019-08-10] MEDS ORDERED: KETOROLAC 30 MG/ML VIAL IVP ONE (04:35)
[2019-08-10 05:39] LABS: BASOPHILS % (AUTO) 0.5 % (0.0-2.0); EOSINOPHILS # (AUTO) 0.1 K/uL (0-0.4); EOSINOPHILS % (AUTO) 1.4 % (0.0-4.0); HEMATOCRIT 43.5 % (36-48); HEMOGLOBIN 14.6 g/dL (12.0-16.0); LYMPHOCYTES # (AUTO) 2.4 K/uL (2.5-16.5); LYMPHOCYTES % (AUTO) 37.6 % (20.5-51.1); MEAN CORPUSCULAR HEMOGLOBIN 32 pg (27-31); MEAN CORPUSCULAR HGB CONC 34 g/dL (33-37); MEAN CORPUSCULAR VOLUME 94.8 fL (80-94); MONOCYTES # (AUTO) 0.3 K/uL (0.8-1.0); MONOCYTES % (AUTO) 5.2 % (1.7-9.3); NEUTROPHILS # (AUTO) 3.5 K/uL (1.8-7.7); NEUTROPHILS % (AUTO) 55.3 % (42.2-75.2); PLATELET COUNT (AUTO) 175 K/uL (140-450); RED BLOOD CELL COUNT(AUTO) 4.58 MIL/uL (4.20-5.40); RED CELL DISTRIBUTION WIDTH 13.1 % (11.6-13.7); WHITE BLOOD COUNT (AUTO) 6.4 K/uL (4.8-10.8)
[2019-08-10 06:23] LABS: ANION GAP 14.2 (8-16); CARBON DIOXIDE 27.3 mmol/L (21-32); CREATININE 0.9 mg/dL (0.6-1.3); POTASSIUM 4.5 mmol/L (3.5-5.1)
[2019-08-10 06:41] LABS: ALBUMIN 3.3 g/dL (3.4-5.0); TOTAL BILIRUBIN 0.2 mg/dL (0.0-1.0)
[2019-08-10 06:48] VITALS: BP 124/79
== END 2019-08-10 07:05 | disposition home or self-care (01) ==
LOC: MED 02:42
DX: K80.80 Other cholelithiasis without obstruction (principal); R11.2 Nausea with vomiting, unspecified
CPT/HCPCS: 36415; 80053; 83690; 85025; 96361; 96374; 96375; 99284; J1885; J2405; J7030